=== PATIENT | male | born 1970 | race Caucasian/White ===

== ENCOUNTER 2016-05-29 09:21 | Emergency (ER) | payer OTHER ==
--- NOTE | 2016-05-29 11:24 | ERNOTE ---
Headache ER HPI - Narrative Date of Service: 05/29/16 - General Presenting Symptoms: headache Time Seen by Provider: 05/29/16 11:15 Source: patient, RN notes reviewed Exam Limitations: no limitations - Immun/Allergies/Home Medications Immunizations: IMMUNIZATION HX Immunizations Up to Date Yes History of Influenza Vaccine No Hx Pneumococcal Vaccination No Allergies/Adverse Reactions: Allergies No Known Allergies Allergy (Verified 05/29/16 10:36) Home Medications: HOME MEDICATIONS Zolpidem Tartrate [Ambien] 10 mg PO HS PRN 02/05/14 [Last Taken 02/11/14 21:00] Doxylamine Succinate [Sleep Aid] 2 tab PO HS 02/12/14 [Last Taken 02/11/14 21:00 ] Diclofenac Sodium [Voltaren] 75 mg PO BID 02/08/15 [Last Taken Unknown] - History of Present Illness Narrative: Germán is a 46-year-old male who presents to the emergency department for a headache that began 2 days ago. He also reports body aches, chills and lightheadedness. His pain is located behind his eyes. He has not taken anything for the headache because "I don't take pain medicine." He was hospitalized with a viral meningitis approximately 2 years ago and reports having similar symptoms. He is concerned that he may have the same illness again. He denies any sick contacts. Date (Duration): 05/27/16 Timing of Headache: gradual Context Headache: Present: new onset Quality: Present: throbbing Severity Maximum: Present: moderate Severity-Currently: Present: moderate Headache frequency: Present: occasional headaches Review of Systems - Review of Systems Constitutional: Present: chills, fatigue, malaise. Absent: recent illness, fever EYE: Present: no symptoms reported ENT: Absent: ear pain, nose congestion, sore throat Respiratory: Absent: shortness of breath, cough Cardiology: Absent: chest pain, syncope Gastrointestinal/Abdominal: Absent: nausea, vomiting, diarrhea, abdominal pain Genitourinary: Present: no symptoms reported Musculoskeletal: Present: muscle pain, joint pain Skin: Present: no symptoms reported Neurological: Present: headache, dizziness/light-headedness. Absent: weakness, numbness, tingling Endocrine: Present: no symptoms reported Hematologic/Lymphatic: Present: no symptoms reported Psych: Present: anxiety, depressed - Patient's Past Medical History Patient History - Medical: Anxiety, Depression, Headache, UTI'S, Other Patient History - Cardiac/Respiratory: Bronchitis, Pneumonia Patient History - Cancer: No Hx of Cancer Patient History - Surgical Procedures: Appendectomy, Other - Social History Living Situations: home Smoking Status: Current every day smoker Have you smoked in the past 12 months: Yes Alcohol Use: occasionally Drug Use: other - Immunizations History of Influenza Vaccine: No - does not get vaccine Physical Exam - Physical Exam General Appearance: Present: wd/wn, alert, no apparent distress Eye Exam: Normal inspection: bilateral, PERRL: bilateral Ears, Nose, Throat: Present: normal ENT inspection, hearing grossly normal, normal pharynx. Absent: nasal congestion, sinus pain/drainage Neck: Present: normal inspection, supple, full range of motion, tender lateral Respiratory: Present: no respiratory distress, normal breath sounds, no accessory muscle use, lungs clear Cardiovascular/Chest: Present: regular rate, rhythm, no murmur Neurological Exam: Present: alert, oriented, normal mood/affect Skin Exam: Present: normal color, warm/dry Lymphatic Exam: Present: no adenopathy ED Progress - Results and Orders Patient's Lab Results:: I have reviewed the patient's lab results. - Vital Signs Patient's Vital Signs:: I have reviewed the patient's vital signs. Vital Signs: Vital Signs 05/29/16 10:29 Temperature 35.8 C L Pulse Rate 80 Respiratory 20 Rate Blood Pressure 137/91 O2 Sat by Pulse 99 Oximetry - Progress/Reassessment Chief Complaint: Headache Progress:: Unchanged Departure Clinical Impression: Acute viral syndrome - Departure Disposition: Home self-care Condition: Good Instructions: Influenza, Adult, [id number], Form - Excuse from Work, School, or Physical Activity Additional Instructions: Rest, Push fluids, Follow up as needed Referrals: Gaviota Wolff FNP [Primary Care Provider] -
[2016-05-29 11:56] LABS: Albumin * 3.9 gm/dl (3.4-5.0); Anion Gap 11.6 mmol/L (6.8-13.8); BUN/Creatinine Ratio 10.3 (9.0-21.6); Bilirubin, Total 0.2 mg/dL (0.0-1.1); CRP 0.4 mg/dL (0.0-0.9); Ca. Corrected For Albumin 8.4 mg/dL (8.4-10.2); Calcium * 8.6 mg/dL (7.9-10.9); Carbon Dioxide 28.6 mmol/L (24-32.6); Potassium 4.2 mmol/L (3.4-4.6); Total Protein 6.8 gm/dL (6.2-8.2)
[2016-05-29 12:34] LABS: Hematocrit 43.6 % (42.0-52.0); Hemoglobin 14.7 gm/dL (13.5-18.0); Mean Cell Volume 92.4 fl (78-100); Mean Corpuscular Hemoglobin 31.1 pg (27-31); Mean Corpuscular Hgb Conc 33.7 g/dl (32-36); Mean Platelet Volume 11.1 fl (6.0-9.5); Neutrophil # 6.9 K/mm3 (1.3-6.0); Neutrophil % 60.8 % (42-75.0); Platelet Count 177 K/mm3 (150-450); Red Blood Count 4.72 M/mm3 (4.7-6.0); Red Cell Distribution Width 12.7 % (11.5-14.0); White Blood Count 11.4 K/mm3 (4.0-10.5)
[2016-05-29 13:14] VITALS: BP 130/78
== END 2016-05-29 13:13 | disposition home or self-care (01) ==
LOC: ER 09:21
DX: B34.9 Viral infection, unspecified (principal); F17.210 Nicotine dependence, cigarettes, uncomplicated; Z87.440 Personal history of urinary (tract) infections